=== PATIENT | male | born 1960 | race Caucasian/White ===

== ENCOUNTER 2017-01-24 14:44 | Emergency (ER) | payer MEDICAID ==
[2017-01-24 14:45] VITALS: BMI 26.6
[2017-01-24 15:01] VITALS: TEMP 97.5
--- NOTE | 2017-01-24 15:44 | ED PDOC ---
Arrival/HPI - General Chief Complaint: Upper Extremity Problem/Injury Time Seen by Provider: 01/24/17 14:53 - History of Present Illness Narrative History of Present Illness (Text): 56 year old male with a past medical history of hypertension and gout who has presents with 10 days of left shoulder pain. He denies any associated injury to the area. He states the pain is constant, scaled 8/10 in severity, radiates to the posterior arm. He states the pain is neither worsened or improved with activity or rest. He denies any chest pain, dyspnea, diaphoresis, or claudication of the affected extremity. 01/24/17 16:54 (José Miguel Carroll) Past Medical History - Provider Review Nursing Documentation Reviewed: Yes - Travel History If Yes, travel location?: [facility] - Infectious Disease Hx of Infectious Diseases: None - Cardiac Hx Cardiac Disorders: Yes Hx Hypertension: Yes - Pulmonary Hx Respiratory Disorders: No - Neurological Hx Neurological Disorder: No - HEENT Hx HEENT Disorder: No - Renal Hx Kidney Stones: Yes - Endocrine/Metabolic Hx Endocrine Disorders: No - Hematological/Oncological Hx Blood Disorders: No - Integumentary Hx Dermatological Disorder: No - Musculoskeletal/Rheumatological Hx Musculoskeletal Disorders: Yes Hx Gout: Yes - Gastrointestinal Hx Gastrointestinal Disorders: No - Genitourinary/Gynecological Hx Genitourinary Disorders: No - Psychiatric Hx Depression: No Hx Emotional Abuse: No Hx Physical Abuse: No Hx Substance Use: No - Surgical History Other/Comment: right inguinal hernia. - Anesthesia Hx Anesthesia: Yes Hx Anesthesia Reactions: No Hx Malignant Hyperthermia: No - Suicidal Assessment Feels Threatened In Home Enviroment: No Family/Social History - Physician Review Nursing Documentation Reviewed: Yes Family/Social History: Hypertension, CAD/[place], Intracranial Hemorrhage Smoking Status: Never Smoked Hx Alcohol Use: No Hx Substance Use: No Allergies/Home Meds Allergies/Adverse Reactions: Allergies No Known Allergies Allergy (Verified 01/24/17 14:56) Home Medications: Home Meds Medication Instructions Recorded Confirmed Allopurinol [Zyloprim] 300 mg PO DAILY 11/18/15 01/24/17 Atenolol [Tenormin] 50 mg PO DAILY 11/18/15 01/24/17 Carisoprodol/Aspirin 1 tab PO HS 01/24/17 01/24/17 [Carisoprodl-Aspirin 200-325 mg] Methylprednisolone [Medrol] 1 tab PO DAILY 01/24/17 01/24/17 Review of Systems - Review of Systems Constitutional: absent: Fatigue, Weight Change, Fevers Eyes: absent: Vision Changes, Photophobia, Eye Pain ENT: absent: Hearing Changes, Tinnitus, TMJ Pain Respiratory: absent: SOB, Cough, Sputum Cardiovascular: absent: Chest Pain, Palpitations, Edema Gastrointestinal: absent: Abdominal Pain, Stool Changes, Appetite Changes Musculoskeletal: Arthralgias. absent: Neck Pain Skin: Normal Neurological: absent: Headache, Dizziness, Focal Weakness Endocrine: absent: Diaphoresis Hemo/Lymphatic: absent: Easy Bleeding, Easy Bruising Psychiatric: absent: Depression, Suicidal Ideation Physical Exam Temperature: Afebrile Blood Pressure: Hypertensive Pulse: Regular Respiratory Rate: Normal Appearance: Positive for: Non-Toxic Pain Distress: Moderate Mental Status: Positive for: Alert and Oriented X 3 - Systems Exam Head: Present: Atraumatic, Normocephalic Pupils: Present: PERRL Extroacular Muscles: Present: EOMI Conjunctiva: Present: Normal Mouth: Present: Moist Mucous Membranes Neck: Present: Normal Range of Motion. No: Lymphadenopathy Respiratory/Chest: Present: Clear to Auscultation. No: Rales Cardiovascular: Present: Regular Rate and Rhythm, Normal S1, S2 Abdomen: Present: Normal Bowel Sounds. No: Tenderness, Distention Back: Present: Normal Inspection. No: CVA Tenderness Upper Extremity: Present: Normal Inspection, NORMAL PULSES, Neurovascularly Intact, Other ( tenderness to palpation to the AC, coracoid, deltoid, and biceps brachii tendon) Lower Extremity: Present: Normal Inspection. No: Edema, NORMAL PULSES Neurological: Present: CN II-XII Intact, Speech Normal, Normal Cerebellar Funct Skin: Present: Warm, Dry, Normal Color Psychiatric: Present: Alert, Oriented x 3, Normal Insight, Normal Concentration Vital Signs Temp Pulse Resp BP Pulse Ox 01/24/17 18:03 76 16 135/72 100 01/24/17 16:59 79 18 137/86 98 01/24/17 15:00 97.5 F L 86 17 139/94 H 96 Medical Decision Making ED Course and Treatment: 56 year old male with left shoulder pain of 10 days duration. Left shoulder X- ray performed yesterday was negative. Pain has not improved with NSAIDs, Carisoprodol, Aspirin, and Solumedrol. EKG to rule ACS was negative. 01/24/17 16:26 CBC, CMP, and lipid were unremarkable. Patient was given IM dexamethasone and 300 mg of Neurontin. HgbA1c was cancelled. 01/24/17 16:41 Patient reports improvement in symptoms Patient is amenable to discharge with a prescription of Neurontin. 01/24/17 16:54 (José Miguel Carroll) 56 yo male with left shoulder pain x 10days. Agree with resident's history and physical, assessment and plan. Patient received medications that improved his symptoms. EKG normal. Left shoulder pain due to MSK vs Tendonitis. Patient was advised to make sure he follows up with his PMD as scheduled and to return to the ED if symptoms worsen or any other concern. (Kevin Franks) - Lab Interpretations Lab Results: 01/24/17 15:30 01/24/17 15:30 Lab Results 01/24/17 15:30: WBC 11.7 H D, RBC 4.84, Hgb 14.7, Hct 42.9, MCV 88.6, MCH 30.4, MCHC 34.3, RDW 14.2, Plt Count 175, MPV 9.4, Gran % 75.1 H, Lymph % (Auto) 17.1 L, Brule % (Auto) 6.5 H, Eos % (Auto) 1.2 L, Baso % (Auto) 0.1, Gran # 8.81 H, Lymph # 2.0, Brule # 0.8 H, Eos # 0.1, Baso # 0.01 01/24/17 15:30: Sodium 142, Potassium 3.7, Chloride 106, Carbon Dioxide 25, Anion Gap 15, BUN 24 H, Creatinine 1.2, Est GFR ( Amer) > 60, Est GFR ( Non-Af Amer) > 60, Random Glucose 111 H, Calcium 8.7, Total Bilirubin 0.4, AST 24, ALT 33, Alkaline Phosphatase 68, Total Protein 6.5, Albumin 4.1, Globulin 2.4, Albumin/Globulin Ratio 1.7, Triglycerides 115, Cholesterol 212 H, LDL Cholesterol Direct 127, HDL Cholesterol 75 H - Medication Orders Current Medication Orders: Discontinued Medications Dexamethasone (Decadron Inj) 10 mg IM STAT STA Stop: 01/24/17 16:11 Last Admin: 01/24/17 16:45 Dose: 10 mg IM Administration Charges Document 01/24/17 16:45 HI (Rec: 01/24/17 16:45 HI [id number]) Injection Site MAR Injection Site Left Deltoid Charges for Administration # of IM Administrations 1 Gabapentin (Neurontin) 300 mg PO STAT DU PRN Reason: Protocol Last Admin: 01/24/17 16:45 Dose: 300 mg Disposition/Present on Arrival - Present on Arrival Any Indicators Present on Arrival: No History of DVT/PE: No History of Uncontrolled Diabetes: No Urinary Catheter: No History of Decub. Ulcer: No History Surgical Site Infection Following: None - Disposition Have Diagnosis and Disposition been Completed?: Yes Disposition Time: 17:41 Patient Plan: Discharge - Disposition Diagnosis: Left shoulder pain Disposition: HOME/ ROUTINE Condition: IMPROVED Discharge Instructions (ExitCare): Shoulder Pain (ED) Additional Instructions: [Mr. Daniels], thank you for letting us take care of you today. Your provider was [Dr. Carroll and Dr. Franks]. You were treated for [left shoulder pain]. The emergency medical care you received today was directed at your acute symptoms. If you were prescribed any medication, please fill it and take as directed. It may take several days for your symptoms to resolve. Return to the Emergency Department if your symptoms worsen, do not improve, or if you have any other problems. Please contact your doctor or call one of the physicians/clinics you have been referred to that are listed on the Patient Visit Information form that is included in your discharge packet. Bring any paperwork you were given at discharge with you along with any medications you are taking to your follow up visit. Our treatment cannot replace ongoing medical care by a primary care provider (PCP) outside of the emergency department. Thank you for allowing the [email or web address] team to be part of your care today. If you had an X-Ray or CT scan: A Radiologist will review the ED reading if any change in treatment is needed we will contact you. If you had a blood, urine, or wound culture: It will take several days for the results, if any change in treatment is needed we will contact you. If you had an STI test: It will take 48 hours for the results. Please call after 1 week if you have not heard back. Prescriptions: Gabapentin [Neurontin] 300 mg PO DAILY #5 cap Forms: [employer] (E[place]ian)
[2017-01-24 16:14] LABS: BASO # 0.01 K/mm3 (0.0-2.0); BASO % 0.1 % (0.0-3.0); EOS # 0.1 (0.0-0.7); EOS % 1.2 % (1.5-5.0); GRAN # 8.81 (1.4-6.5); GRAN % 75.1 % (50.0-68.0); HEMATOCRIT 42.9 % (42.0-52.0); LYMPH % 17.1 % (22.0-35.0); MEAN CELL VOLUME 88.6 fl (80.0-105.0); MEAN CORPUSCULAR HEMOGLOBIN 30.4 pg (25.0-35.0); MEAN CORPUSCULAR HGB CONC 34.3 g/dl (31.0-37.0); MEAN PLATELET VOLUME 9.4 fl (7.0-11.0); MONO # 0.8 (0.1-0.6); MONO % 6.5 % (1.0-6.0); RED CELL DISTRIBUTION WIDTH 14.2 % (11.5-14.5); WHITE BLOOD COUNT 11.7 10^3/ul (4.5-11.0)
[2017-01-24 16:15] LABS: ALB/GLOB RATIO 1.7 (1.1-1.8); ALKALINE PHOSPHATASE 68 U/L (38-126); ALT/SGPT 33 U/L (7-56); AST/SGOT 24 U/L (17-59); BILIRUBIN,TOTAL 0.4 mg/dL (0.2-1.3); BLOOD UREA NITROGEN 24 mg/dL (7-21); CALCIUM 8.7 mg/dL (8.4-10.5); CARBON DIOXIDE 25 mmol/L (21-33); CHLORIDE 106 mmol/L (98-107); CHOLESTEROL 212 mg/dL (130-200); GFR AFRICAN-AMERICAN > 60; GLUCOSE,RANDOM 111 mg/dL (70-110); POTASSIUM 3.7 mmol/L (3.6-5.0); SODIUM 142 mmol/L (132-148); TOTAL PROTEIN 6.5 g/dL (5.8-8.3)
--- NOTE | 2017-01-24 16:18 | ED PDOC ---
"Arrival/HPI - General Chief Complaint: Upper Extremity Problem/Injury Time Seen by Provider: 01/24/17 14:53 - History of Present Illness Narrative History of Present Illness (Text): 56 year old with a past medical history of hypertension and gout who presents with 10 days of left upper extremity pain, located along the posterior shoulder and radiates down the posterior arm. He denies any associated trauma to the affected area; describes it as constant, 8/10 in severity, neither worsened or improved with activity or rest, unrelieved by 600 mg Ibuprofen x3, Carisoprodol/ Aspirin, and Solumedrol dose lindsey. He denies any chest pain, shortness of breath , diaphoresis, or claudication. 01/24/17 16:12 Past Medical History - Provider Review Nursing Documentation Reviewed: Yes - Travel History If Yes, travel location?: [facility] - Infectious Disease Hx of Infectious Diseases: None - Cardiac Hx Cardiac Disorders: Yes Hx Hypertension: Yes - Pulmonary Hx Respiratory Disorders: No - Neurological Hx Neurological Disorder: No - HEENT Hx HEENT Disorder: No - Renal Hx Kidney Stones: Yes - Endocrine/Metabolic Hx Endocrine Disorders: No - Hematological/Oncological Hx Blood Disorders: No - Integumentary Hx Dermatological Disorder: No - Musculoskeletal/Rheumatological Hx Musculoskeletal Disorders: Yes Hx Gout: Yes - Gastrointestinal Hx Gastrointestinal Disorders: No - Genitourinary/Gynecological Hx Genitourinary Disorders: No - Psychiatric Hx Depression: No Hx Emotional Abuse: No Hx Physical Abuse: No Hx Substance Use: No - Surgical History Other/Comment: right inguinal hernia. - Anesthesia Hx Anesthesia: Yes Hx Anesthesia Reactions: No Hx Malignant Hyperthermia: No - Suicidal Assessment Feels Threatened In Home Enviroment: No Family/Social History Family/Social History: CVA/TIA, Hypertension, CAD/[place] Smoking Status: Never Smoked Hx Alcohol Use: No Hx Substance Use: No Allergies/Home Meds Allergies/Adverse Reactions: Allergies No Known Allergies Allergy (Verified 01/24/17 14:56) Home Medications: Home Meds Medication Instructions Recorded Confirmed Allopurinol [Zyloprim] 300 mg PO DAILY 11/18/15 01/24/17 Atenolol [Tenormin] 50 mg PO DAILY 11/18/15 01/24/17 Carisoprodol/Aspirin 1 tab PO HS 01/24/17 01/24/17 [Carisoprodl-Aspirin 200-325 mg] Methylprednisolone [Medrol] 1 tab PO DAILY 01/24/17 01/24/17 Physical Exam Vital Signs Temp Pulse Resp BP Pulse Ox 01/24/17 15:00 97.5 F L 86 17 139/94 H 96 Medical Decision Making - Medication Orders Current Medication Orders: Dexamethasone (Decadron Inj) 10 mg IM STAT STA Stop: 01/24/17 16:11 Gabapentin (Neurontin) 300 mg PO STAT DU PRN Reason: Protocol Disposition/Present on Arrival - Present on Arrival History of DVT/PE: No History of Uncontrolled Diabetes: No Urinary Catheter: No History of Decub. Ulcer: No History Surgical Site Infection Following: None - Disposition Forms: [employer] (American)"
[2017-01-24 18:48] VITALS: BP 135/72; PULSE 76; RESP 16; O2SAT 100
--- NOTE | 2017-01-25 08:48 | CARD ---
APPROVED REPORT EKG Measurement Heart [id number] <Conclusion> Normal sinus rhythm with sinus arrhythmia Small inferior q waves LVH by voltage NSSTW changes, new
== END 2017-01-24 18:03 | disposition home or self-care (01) ==
LOC: ED 14:44
DX: M25.512 Pain in left shoulder (principal); I10 Essential (primary) hypertension
CPT/HCPCS: 80053; 80061; 85025; 93005; 96372; 99284; J1100